=== PATIENT | female | born 2005 | race African-American/Black ===

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

== ENCOUNTER 2023-07-28 19:48 | Emergency (ER) | payer OTHER, SELFPAY ==
[2023-07-28 20:15] LABS: Pregnancy Test - Urine (BHCG) Negative (Negative); Pregu Control Background? CLEAR/WHITE (CLR/WHITE); Pregu Control Bar Appear? YES (CONTROL BAR)
[2023-07-28] MEDS ORDERED: Ibuprofen 800 MG TAB ONE (20:26)
[2023-07-28] MEDS ORDERED: Acetaminophen 500 MG TAB ONE (20:27)
[2023-07-28 20:59] LABS: Amphetamine Not Detected (NotDetected); Barbiturates Screen Not Detected (NotDetected); Benzodiazepine Screen Not Detected (NotDetected); Cocaine Metabolite Screen Not Detected (NotDetected); Methadone Not Detected (NotDetected); Methamphetamine Not Detected (NotDetected); Opiate Screen Not Detected (NotDetected); Oxycodone Screen Not Detected (NotDetected); Phencyclidine (PCP) Not Detected (NotDetected); THC/Cannabinoid Screen Not Detected (NotDetected); Tricyclic Screen Not Detected (NotDetected)
[2023-07-28 21:12] LABS: Eosinophils 1 % (0-10); Hematocrit 42.3 % (36.0-47.0); Hemoglobin 13.5 g/dL (12.0-16.0); Lymphocytes 27 % (28-48); MDiff Complete? YES; Mean Corpuscular Hemoglobin 27.7 pg (25.0-35.0); Mean Corpuscular Volume 86.7 fl (78.0-98.0); Mean Platelet Volume 10.9 fL (7.4-10.4); Monocytes 5 % (0-4); Neutrophil 67 % (31-61); Platelet Count 155 10x3/uL (130-400); Red Blood Cell (RBC) Count 4.88 mill/uL (4.00-5.20); White Blood Cell (WBC) Count 4.1 10x3/uL (4.8-10.8)
[2023-07-28 21:19] LABS: ALT (SGPT) 16 U/L (8-55); AST (SGOT) 18 U/L (5-34); Albumin 4.9 g/dL (3.5-5.0); Alkaline Phosphatase 36 U/L (40-100); Anion Gap 14 mmol/L (10-20); BUN (Urea Nitrogen) 7 mg/dL (7.0-18.7); Bilirubin, Total 0.6 mg/dL (0.2-1.2); CK (CPK) 99 U/L (29-168); Calc. Creatinine Clearance 0 mL/min (70-130); Calcium 9.6 mg/dL (7.8-10.44); Carbon Dioxide 22 mmol/L (22-29); Chloride 105 mmol/L (98-107); Estimated GFR 111; Globulin 3.3 g/dL (2.4-3.5); Glucose 77 mg/dL (70-105); Lipase 21 U/L (8-78); Potassium 3.8 mmol/L (3.5-5.1); Protein, Total 8.2 g/dL (6.0-8.3); Sodium 137 mmol/L (136-145); Troponin I Less than 0.010 ng/mL (< 0.028)
[2023-07-28 21:31] LABS: SARS-CoV-2 NAA Rapid Test Not Detected (NotDetected)
== END 2023-07-28 21:57 | disposition home or self-care (01) ==
LOC: MADERS 19:48
DX: J06.9 Acute upper respiratory infection, unspecified (principal)
CPT/HCPCS: 71046; 80053; 80306; 81025; 82550; 83605; 83690; 84443; 84484; 85025; 87040; 87081; 87430; 87804; 93005; 94760; 96360; U0002

== ENCOUNTER 2024-02-26 11:36 | Emergency (ER) | payer BC, OTHER ==
[2024-02-26] MEDS ORDERED: Ondansetron ODT 4 MG TAB ONE (11:50)
[2024-02-26 12:11] LABS: Bilirubin Negative (Negative); Blood, Urine Negative (Negative); Glucose, Urine (Dipstick) Negative (Negative); Ketone, Urine Trace mg/dL (Negative); Leukocyte Negative (Negative); Nitrite Negative (Negative); Protein, Urine (Dipstick) 30 mg/dL (Neg-Trace)
[2024-02-26 12:15] LABS: Clarity Hazy (Clear)
[2024-02-26 12:22] LABS: Bacteria/HPF Rare-Few HPF (None Seen); CAUTI Indications for Culture Pelvic or flank pain; Mucous/LPF 2+ LPF (<2+); RBC/HPF None Seen HPF (0-3); Urine Culture Reflex No No; WBC/HPF 0-3 HPF (0-3)
== END 2024-02-26 12:37 | disposition home or self-care (01) ==
LOC: MADERS 11:36
DX: O21.9 Vomiting of pregnancy, unspecified (principal)
CPT/HCPCS: 81001; 99283; Q0162

== ENCOUNTER 2024-06-07 21:14 | Emergency (ER) | payer BC, OTHER ==
[2024-06-07] MEDS ORDERED: Labetalol HCl 100 MG/20 ML VIAL ONE (21:32)
[2024-06-07 21:53] LABS: Eosinophils 1 % (0-10); Hematocrit 34.9 % (36.0-47.0); Hemoglobin 10.9 g/dL (12.0-16.0); Lymphocytes 18 % (21-51); MDiff Complete? YES; Mean Corpuscular HGB CONC 31.3 g/dL (32.0-36.0); Mean Corpuscular Hemoglobin 27.9 pg (27.0-31.0); Mean Platelet Volume 11.2 fL (7.4-10.4); Monocytes 6 % (0-10); Neutrophil 75 % (42-75); Platelet Count 192 10x3/uL (130-400); Red Blood Cell (RBC) Count 3.92 mill/uL (4.20-5.40)
[2024-06-07] MEDS ORDERED: Magnesium 2 GM/50 ML BAG (IN WATER) ONE (21:57)
[2024-06-07 22:12] LABS: ALT (SGPT) 22 U/L (8-55); AST (SGOT) 22 U/L (5-34); Albumin 3.4 g/dL (3.5-5.0); Alkaline Phosphatase 132 U/L (40-110); Anion Gap 14 mmol/L (10-20); BUN (Urea Nitrogen) 5 mg/dL (7.0-18.7); Bilirubin, Total 0.4 mg/dL (0.2-1.2); Calc. Creatinine Clearance 0 mL/min (70-130); Carbon Dioxide 21 mmol/L (22-29); Chloride 107 mmol/L (98-107); Estimated GFR 129; Glucose 106 mg/dL (70-105); Magnesium 1.7 mg/dL (1.6-2.6); Potassium 3.6 mmol/L (3.5-5.1); Protein, Total 6.4 g/dL (6.0-8.3); Sodium 138 mmol/L (136-145)
[2024-06-07 22:13] LABS: Troponin I Less than 0.010 ng/mL (< 0.028)
[2024-06-07 22:46] LABS: Bilirubin Negative (Negative); Blood, Urine Small (Negative); Clarity Clear (Clear); Glucose, Urine (Dipstick) Negative (Negative); Ketone, Urine Trace mg/dL (Negative); Leukocyte Trace (Negative); Nitrite Negative (Negative); Protein, Urine (Dipstick) Negative (Neg-Trace); Specific Gravity, Urine 1.015 (1.005-1.030); Urobilinogen 0.2 mg/dL (Less than 2)
[2024-06-07 22:48] LABS: CAUTI Indications for Culture Pregnancy; RBC/HPF 0-3 HPF (0-3); Squamous Epithelial 0-3 HPF (0-3); WBC/HPF 0-3 HPF (0-3)
[2024-06-07 22:49] LABS: Urine Culture Reflex Yes Yes
[2024-06-08] MEDS ORDERED: Magnesium 2 GM/50 ML BAG (IN WATER) ONE (00:07)
== END 2024-06-08 00:39 | disposition short-term general hospital (02) ==
LOC: MADERS 21:14
DX: O14.95 Unspecified pre-eclampsia, complicating the puerperium (principal)
CPT/HCPCS: 80053; 81001; 83735; 83880; 84484; 85025; 87086; 93005; 94760; 96365; 96366; 96375; 96376; J3475

== ENCOUNTER 2024-06-11 22:30 | Emergency (ER) | payer BC, OTHER ==
[2024-06-11 23:16] LABS: Band 2 % (5-11); Eosinophils 6 % (0-10); Hematocrit 40.9 % (36.0-47.0); Hemoglobin 12.6 g/dL (12.0-16.0); Lymphocytes 25 % (21-51); MDiff Complete? YES; Mean Corpuscular HGB CONC 30.9 g/dL (32.0-36.0); Mean Corpuscular Hemoglobin 27.6 pg (27.0-31.0); Mean Corpuscular Volume 89.2 fl (78.0-98.0); Mean Platelet Volume 9.4 fL (7.4-10.4); Monocytes 8 % (0-10); Neutrophil 59 % (42-75); Platelet Count 289 10x3/uL (130-400); RBC Distribution Width 13.2 % (11.5-14.5); Red Blood Cell (RBC) Count 4.59 mill/uL (4.20-5.40); White Blood Cell (WBC) Count 9.1 10x3/uL (4.8-10.8)
[2024-06-11] MEDS ORDERED: Acetaminophen 325 MG TAB ONE (23:17)
[2024-06-11] MEDS ORDERED: Magnesium 2 GM/50 ML BAG (IN WATER) ONE (23:17)
[2024-06-11 23:18] LABS: Prothrombin Time 13.2 sec (12.0-14.7)
[2024-06-11 23:19] LABS: PTT 26.3 sec (22.9-36.1)
[2024-06-11 23:26] LABS: ALT (SGPT) 28 U/L (8-55); AST (SGOT) 21 U/L (5-34); Albumin 3.8 g/dL (3.5-5.0); Alkaline Phosphatase 107 U/L (40-110); Anion Gap 16 mmol/L (10-20); BUN (Urea Nitrogen) 9 mg/dL (7.0-18.7); Bilirubin, Total 0.4 mg/dL (0.2-1.2); Calc. Creatinine Clearance 0 mL/min (70-130); Calcium 9.8 mg/dL (7.8-10.44); Carbon Dioxide 19 mmol/L (22-29); Chloride 106 mmol/L (98-107); Estimated GFR 122; Globulin 4.1 g/dL (2.4-3.5); Glucose 100 mg/dL (70-105); Magnesium 1.9 mg/dL (1.6-2.6); Potassium 4.1 mmol/L (3.5-5.1); Protein, Total 7.9 g/dL (6.0-8.3); Sodium 137 mmol/L (136-145)
[2024-06-12 00:01] LABS: Bilirubin Negative (Negative); Blood, Urine Small (Negative); Clarity Clear (Clear); Glucose, Urine (Dipstick) Negative (Negative); Ketone, Urine Negative (Negative); Leukocyte Trace (Negative); Nitrite Negative (Negative); Protein, Urine (Dipstick) Negative (Neg-Trace); Specific Gravity, Urine 1.015 (1.005-1.030); Urobilinogen 0.2 mg/dL (Less than 2); pH, Urine 7.5 (5.0-9.0)
[2024-06-12 00:02] LABS: RBC/HPF 0-3 HPF (0-3)
[2024-06-12 00:03] LABS: Bacteria/HPF Rare-Few HPF (None Seen); CAUTI Indications for Culture Pelvic or flank pain; Squamous Epithelial 0-3 HPF (0-3); Urine Culture Reflex No No
== END 2024-06-12 00:54 | disposition short-term general hospital (02) ==
LOC: MADERS 22:30
DX: O14.95 Unspecified pre-eclampsia, complicating the puerperium (principal)
CPT/HCPCS: 80053; 81001; 83735; 85025; 85610; 85730; 96365; 96375; 96376; J3475

== ENCOUNTER 2024-07-28 13:04 | Emergency (ER) | payer BC, MEDICAID ==
[2024-07-28 13:32] LABS: #Basophils 0.1 thou/uL (0.0-0.2); #Eosinophils 0.1 thou/uL (0.0-0.7); #Lymphocytes 2.7 thou/uL (1.20-3.40); #Monocytes 0.5 thou/uL (0.11-0.59); #Neutrophils 3.1 thou/uL (1.40-6.50); %Lymphocytes 41.5 % (21.0-51.0); %Neutrophils 47.6 % (42.0-75.0); Hematocrit 46.5 % (36.0-47.0); Hemoglobin 14.2 g/dL (12.0-16.0); Mean Corpuscular HGB CONC 30.5 g/dL (32.0-36.0); Mean Corpuscular Hemoglobin 26.4 pg (27.0-31.0); Mean Corpuscular Volume 86.7 fl (78.0-98.0); Mean Platelet Volume 10.7 fL (7.4-10.4); Platelet Count 197 10x3/uL (130-400); RBC Distribution Width 13.1 % (11.5-14.5); Red Blood Cell (RBC) Count 5.37 mill/uL (4.20-5.40); White Blood Cell (WBC) Count 6.5 10x3/uL (4.8-10.8)
[2024-07-28 13:42] LABS: BHCG - Serum Negative (NEGATIVE); Pregs Control Background? CLEAR/WHITE (CLR/WHITE); Pregs Control Bar Appear? YES (CONTROL BAR)
[2024-07-28 13:48] LABS: ALT (SGPT) 49 U/L (Less than 34); AST (SGOT) 104 U/L (11-34); Albumin 4.9 g/dL (3.1-4.5); Alkaline Phosphatase 88 U/L (40-110); Anion Gap 17 mmol/L (10-20); BUN (Urea Nitrogen) 6 mg/dL (7.0-18.7); Bilirubin, Total 1.2 mg/dL (0.3-1.2); Calc. Creatinine Clearance 0 mL/min (70-130); Calcium 10.1 mg/dL (7.8-10.44); Carbon Dioxide 21 mmol/L (22-29); Chloride 105 mmol/L (98-107); Estimated GFR 129; Globulin 3.4 g/dL (2.4-3.5); Glucose 85 mg/dL (70-105); Potassium 3.3 mmol/L (3.5-5.1); Protein, Total 8.3 g/dL (6.0-8.3); Sodium 140 mmol/L (136-145)
[2024-07-28 14:08] LABS: Bilirubin Negative (Negative); Blood, Urine Negative (Negative); Clarity Clear (Clear); Glucose, Urine (Dipstick) Negative (Negative); Ketone, Urine Negative (Negative); Leukocyte Negative (Negative); Nitrite Negative (Negative); Protein, Urine (Dipstick) Negative (Neg-Trace); Specific Gravity, Urine 1.015 (1.005-1.030)
[2024-07-28 14:13] LABS: Bacteria/HPF Rare-Few HPF (None Seen); CAUTI Indications for Culture Pelvic or flank pain; RBC/HPF 0-3 HPF (0-3)
[2024-07-28 14:14] LABS: Urine Culture Reflex No No
== END 2024-07-28 14:29 | disposition home or self-care (01) ==
LOC: MADERS 13:04
DX: R10.9 Unspecified abdominal pain (principal); Z55.6 Problems related to health literacy
CPT/HCPCS: 36415; 80053; 81001; 83690; 84703; 85025; 99284